=== PATIENT | male | born 1990 | race Caucasian/White ===

== ENCOUNTER 2016-06-06 16:17 | Emergency (ER) | payer SELFPAY ==
[2016-06-06 16:19] VITALS: BMI 28.0
[2016-06-06 16:23] VITALS: BP 122/68; PULSE 70; RESP 18; TEMP 99; O2SAT 97
--- NOTE | 2016-06-06 17:32 | RAD ---
PROCEDURE: Right Ankle Radiographs. HISTORY: Trauma COMPARISON: None FINDINGS: BONES: Bone alignment and mineralization are normal. There is no acute fracture or bone destruction. Well corticated or ossific density superior to the navicular and talus are most compatible with accessory ossification centers. JOINTS: Normal. Ankle mortise maintained. Talar dome intact SOFT TISSUES: Normal. OTHER FINDINGS: None. IMPRESSION: No acute displaced fracture or dislocation.
--- NOTE | 2016-06-06 17:33 | RAD ---
PROCEDURE: Right Foot Radiographs. HISTORY: Trauma COMPARISON: None. FINDINGS: BONES: Bone alignment and mineralization are normal. There is no acute fracture or bone destruction. JOINTS: Normal. SOFT TISSUES: Normal. OTHER FINDINGS: None. IMPRESSION: No acute fracture or dislocation.
--- NOTE | 2016-06-06 17:37 | C.PDOC ---
History Of Present Illness 25 yr old male presents to the ER with complaints of right ankle pain, after twisting it last night while walking and tripped. Patient states since then he has had pain with weight bearing and movement of the foot. Took Percocet for the pain. Patient denies change in sensations, back pain, leg pain, weakness or numbness. Time Seen by Provider: 06/06/16 16:30 Chief Complaint (Nursing): Lower Extremity Problem/Injury History Per: Patient History/Exam Limitations: no limitations Onset/Duration Of Symptoms: Days (1) Current Symptoms Are (Timing): Still Present Past Medical History Reviewed: Historical Data, Nursing Documentation, Vital Signs Vital Signs: Last Vital Signs Temp 99.0 F 06/06/16 16:20 Pulse 70 06/06/16 16:20 Resp 18 06/06/16 16:20 BP 122/68 06/06/16 16:20 Pulse Ox 97 06/06/16 19:59 - Medical History PMH: Asthma Family History: States: No Known Family Hx - Social History Hx Alcohol Use: No Hx Substance Use: No - Immunization History Hx Tetanus Toxoid Vaccination: No Hx Influenza Vaccination: No Hx Pneumococcal Vaccination: No Review Of Systems Except As Marked, All Systems Reviewed And Found Negative. Musculoskeletal: Positive for: Other ((+) Right ankle pain ). Negative for: Back Pain, Leg Pain Neurological: Negative for: Weakness, Numbness Physical Exam - Physical Exam Appears: Well, Non-toxic, No Acute Distress Skin: Normal Color, Warm, Dry, No Rash Eye(s): bilateral: Normal Inspection, EOMI Nose: Normal Oral Mucosa: Moist Chest: Symmetrical Respiratory: No Accessory Muscle Use Extremity: Tenderness (To the lateral aspect of the right foot. Superficial abrasion to the dorsal aspect of the foot.), No Pedal Edema, No Calf Tenderness , Capillary Refill (<2 sec), No Deformity, No Swelling Extremity: Bilateral: Normal Color And Temperature Pulses: Left Dorsalis Pedis: Normal, Right Dorsalis Pedis: Normal Neurological/Psych: Oriented x3, Normal Speech, Normal Motor, Normal Sensation ED Course And Treatment O2 Sat by Pulse Oximetry: 97 - Other Rad X-Ray - Right Foot X-Ray: Viewed By Me, Read By Radiologist Interpretation: PROCEDURE: Right Foot Radiographs. HISTORY: Trauma. COMPARISON: None. FINDINGS: BONES: Bone alignment and mineralization are normal. There is no acute fracture or bone destruction. JOINTS: Normal. SOFT TISSUES: Normal. OTHER FINDINGS: None. IMPRESSION: No acute fracture or dislocation. X-Ray - Right Ankle X-Ray: Viewed By Me, Read By Radiologist Interpretation: PROCEDURE: Right Ankle Radiographs. HISTORY: Trauma. COMPARISON: None. FINDINGS: BONES: Bone alignment and mineralization are normal. There is no acute fracture or bone destruction. Well corticated or ossific density superior to the navicular and talus are most compatible with accessory ossification centers. JOINTS: Normal. Ankle mortise maintained. Talar dome intact. SOFT TISSUES: Normal. OTHER FINDINGS: None. IMPRESSION: No acute displaced fracture or dislocation. Progress Note: Case was discussed with Dr. Winter who reviewed the XRay and agreed upon the plan and treatment. Air cast was applied by CP . Instructed RICE and follow up with ortho in 1-2 days for re-evaluation. Disposition - Disposition Referrals: [facility] [Outside] Nicolas Schreiber III, MD [Staff Provider] - Disposition: HOME/ ROUTINE Disposition Time: 17:34 Condition: STABLE Additional Instructions: Rest, ice and elevate the area. Follow up with bone doctor in 1-2 days if symptoms persist or worsen. Prescriptions: Ibuprofen [Motrin] 600 mg PO Q6 PRN #20 tab PRN Reason: Pain, Mild (1-3) Instructions: Ankle Sprain (ED) Forms: Work Excuse - Clinical Impression Clinical Impression: Foot sprain - PA / PRODUCTION SCHEDULER / Resident Statement MD/DO has reviewed & agrees with the documentation as recorded. - Scribe Statement The provider has reviewed the documentation as recorded by the Scribe Annette Atwood All medical record entries made by the Scribe were at my direction and personally dictated by me. I have reviewed the chart and agree that the record accurately reflects my personal performance of the history, physical exam, medical decision making, and the department course for this patient. I have also personally directed, reviewed, and agree with the discharge instructions and disposition.
== END 2016-06-06 18:10 | disposition home or self-care (01) ==
LOC: C.ER 16:17
DX: S93.401A Sprain of unspecified ligament of right ankle, initial encounter (principal); W18.49XA Other slipping, tripping and stumbling without falling, initial encounter; Y93.01 Activity, walking, marching and hiking; Y92.414 Local residential or business street as the place of occurrence of the external cause